=== PATIENT | male | born 1990 | race Hispanic/Latino ===

== ENCOUNTER 2019-06-01 18:49 | Emergency (ER) | payer BC ==
[2019-06-01] MEDS ORDERED: ONDANSETRON 4 MG ODT TAB PO ONE ×2 (19:56→19:57)
--- NOTE | 2019-06-01 19:59 | Event Note ---
ED Screening Note Date of service: 06/01/19 Time: 19:54 ED Screening Note: This is a 29 y.o. M. that presents to the ER with sore throat, nausea, and vomiting for 2 days. Reports increasing pain and hoarseness. This initial assessment/diagnostic orders/clinical plan/treatment(s) is/are subject to change based on patients health status, clinical progression and re- assessment by fellow clinical providers in the ED. Further treatment and workup at subsequent clinical providers discretion. Patient/guardian urged not to elope from the ED as their condition may be serious if not clinically assessed and managed. Initial orders include: Labs
[2019-06-01] MEDS ORDERED: ONDANSETRON 4 MG/2 ML INJ ONE (21:26)
[2019-06-01] MEDS ORDERED: ONDANSETRON 4 MG/2 ML INJ IV ONE (21:31)
[2019-06-01 21:41] LABS: Hematocrit 45.4 % (35.5-45.6); Mean Corpuscular HGB Conc 33 % (32-34); Mean Corpuscular Volume 87 fl (84-94); Platelet Count 417 K/mm3 (140-440); Red Blood Count 5.23 M/mm3 (3.65-5.03); Red Cell Distribution Width 14.5 % (13.2-15.2)
[2019-06-01] MEDS ORDERED: MORPHINE 4 MG/1 ML INJ IV ONE (21:42)
[2019-06-01] MEDS ORDERED: ZIPRASIDONE MESYLATE 20 MG VIAL IM ONE (21:42)
[2019-06-01] MEDS ORDERED: FAMOTIDINE 20 MG/2 ML INJ IV ONE (21:43)
[2019-06-01] MEDS ORDERED: diphenhydrAMINE 50 MG/ML VIAL IV ONE (21:43)
[2019-06-01] MEDS ORDERED: WATER FOR INJ Sterile (PF) 10 ML ONE (21:57)
[2019-06-01] MEDS ORDERED: D5W/0.9% NACL 1,000 ML IV SCH (22:00)
[2019-06-01 22:07] LABS: Alanine Aminotransferase 27 units/L (7-56); Albumin 5.3 g/dL (3.9-5); BUN/Creatinine Ratio 15; Blood Urea Nitrogen 15 mg/dL (9-20); Calcium 9.6 mg/dL (8.4-10.2); Hemolysis Index 10
[2019-06-01 22:38] LABS: Basophils % (Manual) 0 % (0.0-1.8); Eosinophils % (Manual) 0 % (0.0-4.3); RBC Morphology Normal; Total Cells Counted 200
[2019-06-01 22:39] LABS: Platelet Estimate Consistent w Auto
[2019-06-01] MEDS ORDERED: SODIUM CHLORIDE 0.9% 1000 ML 1,000 ML ONE (23:34)
[2019-06-01] MEDS ORDERED: SODIUM CHLORIDE 0.9% 1000 ML 1,000 ML IV ONE (23:36)
[2019-06-02 00:47] VITALS: BP 140/88
[2019-06-02] MEDS ORDERED: LIDOCAINE VISCOUS 2% 15 ML ORAL LIQD PO ONE (01:10)
[2019-06-02] MEDS ORDERED: ALUM-MAG HYDROXIDE-SIMETHICONE 200-200-20MG/5ML ORAL LIQD 30 ML PO ONE (01:10)
[2019-06-02] MEDS ORDERED: MORPHINE 4 MG/1 ML INJ IV ONE (01:20)
--- NOTE | 2019-06-02 01:25 | Emergency Department Report ---
ED N/V/D HPI - General Chief complaint: Nausea/Vomiting/Diarrhea Stated complaint: VOMIT/NAUSEA/THROAT PAIN Time Seen by Provider: 06/01/19 19:54 Source: patient Mode of arrival: Ambulatory Limitations: No Limitations - History of Present Illness Initial comments: Patient is a 29-year-old male who has a history of cyclical vomiting syndrome who is presenting with nausea vomiting and epigastric pain. Patient said multiple episodes such as this. Patient is from [place] has not been tough facility before. Patient has been vomiting all day. Patient was vomiting at the time the blood was drawn. States that P normally receives [place] dryl and Zofran and Thorazine that helps with his symptoms. Patient denies any fevers chills, cold or congestion. Patient states that he has a burning sensation in throat from the acid. - Related Data Previous Rx's Medication Instructions Recorded Last Taken Type Ondansetron [Zofran ODT TAB] 8 mg PO Q12HR #10 tab.rapdis 06/02/19 Unknown Rx Sucralfate [Carafate] 1 gm PO Q6HR 7 Days [facility] [place]19 Unknown Rx Allergies Allergy/AdvReac Type Severity Reaction Status Date / Time haloperidol [From Haldol] Allergy Unknown Verified 06/01/19 19:57 ED Review of Systems ROS: Stated complaint: VOMIT/NAUSEA/THROAT PAIN Other details as noted in HPI Comment: All other systems reviewed and negative ED Past Medical Hx - Past Medical History Previous Medical History?: Yes Additional medical history: Cyclic Vomiting Syndrome - Surgical History Past Surgical History?: No - Social History Smoking Status: Never Smoker Substance Use Type: None - Medications Home Medications: Home Medications Medication Instructions Recorded Confirmed Last Taken Type Ondansetron [Zofran ODT TAB] 8 mg PO Q12HR #10 tab.rapdis 06/02/19 Unknown Rx Sucralfate [Carafate] 1 gm PO Q6HR 7 Days [facility] [place] 06/02/19 Unknown Rx ED Physical Exam - General Limitations: No Limitations General appearance: alert, in no apparent distress - Head Head exam: Present: atraumatic, normocephalic - Eye Eye exam: Present: normal appearance - ENT ENT exam: Present: mucous membranes moist. Absent: normal orophraynx (mild erythema without swelling or exudate) - Neck Neck exam: Present: normal inspection - Respiratory Respiratory exam: Present: normal lung sounds bilaterally. Absent: respiratory distress, wheezes, rales, rhonchi - Cardiovascular Cardiovascular Exam: Present: normal rhythm, tachycardia. Absent: systolic murmur, diastolic murmur, rubs, gallop - GI/Abdominal GI/Abdominal exam: Present: soft, tenderness (epigasteric), normal bowel sounds. Absent: distended, guarding, rebound - Rectal Rectal exam: Present: deferred - Extremities Exam Extremities exam: Present: normal inspection - Back Exam Back exam: Present: normal inspection - Neurological Exam Neurological exam: Present: alert, oriented X3 - Psychiatric Psychiatric exam: Present: normal affect, normal mood - Skin Skin exam: Present: warm, dry, intact, normal color. Absent: rash ED Course Vital Signs 06/01/19 06/01/19 06/01/19 19:54 22:11 22:16 Temperature 98.6 F Pulse Rate 114 H 113 H 110 H Respiratory 20 22 24 Rate Blood Pressure 156/97 152/98 127/74 O2 Sat by Pulse 97 Oximetry 06/01/19 06/01/19 06/01/19 22:45 23:00 23:15 Temperature Pulse Rate 110 H 112 H 114 H Respiratory 19 18 18 Rate Blood Pressure 155/92 147/95 151/99 O2 Sat by Pulse Oximetry 06/01/19 06/01/19 06/02/19 23:30 23:46 00:00 Temperature Pulse Rate 120 H 137 H 111 H Respiratory 17 16 16 Rate Blood Pressure 163/100 169/97 140/88 O2 Sat by Pulse Oximetry ED Medical Decision Making - Lab Data Result diagrams: 06/01/19 21:30 06/01/19 21:30 - Medical Decision Making Patient received IV hydration and multiple multiple medications for symptom relief. Patient after receiving medications has not vomited again. Patient was monitored for department 2 hours after medications were given. Patient's only complaint at the time of discharge was still sore throat. Given Maalox and viscous lidocaine to see if this would help with his symptoms. Patient states he feels he can tolerate liquids but not solids at this time. Patient will be given upper prescription for Carafate which she says has helped in the past as well as ODT Zofran. Critical care attestation.: If time is entered above; I have spent that time in minutes in the direct care of this critically ill patient, excluding procedure time. ED Disposition Clinical Impression: Nausea & vomiting Qualifiers: Vomiting type: cyclical vomiting Vomiting Intractability: non-intractable Qualified Code(s): G43.A0 - Cyclical vomiting, not intractable Disposition: DC-01 TO HOME OR SELFCARE Is pt being admited?: No Does the pt Need Aspirin: No Condition: Stable Instructions: Acute Nausea and Vomiting (ED) Prescriptions: Sucralfate [Carafate] 1 gm PO Q6HR 7 Days [facility] Ondansetron [Zofran ODT TAB] 8 mg PO Q12HR #10 tab.rapdis Referrals: LAUREL FRANCO MD [Referring] - 3-5 Days Time of Disposition: 01:25
== END 2019-06-02 02:00 | disposition home or self-care (01) ==
LOC: ED 18:49
DX: G43.A0 Cyclical vomiting, in migraine, not intractable (principal)
CPT/HCPCS: 36415; 80053; 85007; 85025; 96361; 96372; 96374; 96375; 96376; 99283; J1200; J2270; J2405; J3486; J7030; J7042

== ENCOUNTER 2019-06-03 02:15 | Emergency (ER) | payer BC ==
[2019-06-03] MEDS ORDERED: SODIUM CHLORIDE 0.9% 1000 ML 1,000 ML IV ONE ×2 (05:13→07:18)
[2019-06-03] MEDS ORDERED: ALUM-MAG HYDROXIDE-SIMETHICONE 200-200-20MG/5ML ORAL LIQD 30 ML PO ONE (05:13)
[2019-06-03] MEDS ORDERED: DICYCLOMINE 20 MG/2 ML INJ IM ONE (05:13)
[2019-06-03] MEDS ORDERED: ONDANSETRON 4 MG/2 ML INJ IV ONE (05:13)
[2019-06-03] MEDS ORDERED: LIDOCAINE VISCOUS 2% 15 ML ORAL LIQD PO ONE (05:13)
[2019-06-03 05:40] LABS: Basophils % (Auto) 0.1 % (0.0-1.8); Eosinophils % (Auto) 0.1 % (0.0-4.3); Hematocrit 41.8 % (35.5-45.6); Hemoglobin 14.1 gm/dl (11.8-15.2); Lymphocytes # (Auto) 1.9 K/mm3 (1.2-5.4); Mean Corpuscular HGB Conc 34 % (32-34); Mean Corpuscular Volume 87 fl (84-94); Platelet Count 345 K/mm3 (140-440); Red Blood Count 4.81 M/mm3 (3.65-5.03); Red Cell Distribution Width 14.5 % (13.2-15.2)
[2019-06-03 05:51] LABS: Alanine Aminotransferase 23 units/L (7-56); Albumin 4.9 g/dL (3.9-5); BUN/Creatinine Ratio 21; Blood Urea Nitrogen 19 mg/dL (9-20); Calcium 9.4 mg/dL (8.4-10.2); Hemolysis Index 5
[2019-06-03] MEDS ORDERED: diphenhydrAMINE 50 MG/ML VIAL IV ONE (06:08)
[2019-06-03] MEDS ORDERED: SODIUM CHLORIDE 0.9% IV ONE (06:08)
[2019-06-03] MEDS ORDERED: CHLORPROMAZINE IV ONE (06:08)
--- NOTE | 2019-06-03 06:13 | Emergency Department Report ---
<ELIZABETH SIDDIQI - Last Filed: 06/03/19 07:24> ED General Adult HPI - General Chief complaint: Nausea/Vomiting/Diarrhea Stated complaint: NAUSEA AND VOMITING Time Seen by Provider: 06/03/19 05:07 Source: patient Mode of arrival: Ambulatory Limitations: No Limitations - History of Present Illness Initial comments: Patient is a 29-year-old male presents to emergency room with complaints of intermittent nausea and vomiting for a month. Patient states that he has associated sore throat from frequent vomiting and back discomfort. Patient states he has a past medical history of cyclical nausea and vomiting. pt states that he has had several ER visits. pt states that he sees a GI doctor. pt states that his GI doctor states that he should have Zofran, Thorazine, Benadryl for his cyclical vomiting syndrome. he denies any abdominal pain, fever, chills, hematemesis, hematochezia. he states he has past medical history of h ypertension. He states he has an allergy to Haldol. - Related Data Previous Rx's Medication Instructions Recorded Last Taken Type Ondansetron [Zofran ODT TAB] 8 mg PO Q12HR #10 tab.rapdis 06/02/19 Unknown Rx Sucralfate [Carafate] 1 gm PO Q6HR 7 Days [facility] 06/02/19 Unknown Rx Promethazine [Phenergan] 25 mg NC Q6HR PRN #15 supp.rect 06/03/19 Unknown Rx Allergies Allergy/AdvReac Type Severity Reaction Status Date / Time haloperidol [From Haldol] Allergy Unknown Verified 06/01/19 19:57 ED Review of Systems Comment: All other systems reviewed and negative ED Past Medical Hx - Past Medical History Previous Medical History?: Yes Additional medical history: Cyclic Vomiting Syndrome - Surgical History Past Surgical History?: No - Social History Smoking Status: Never Smoker Substance Use Type: None - Medications Home Medications: Home Medications Medication Instructions Recorded Confirmed Last Taken Type Ondansetron [Zofran ODT TAB] 8 mg PO Q12HR #10 tab.rapdis 06/02/19 Unknown Rx Sucralfate [Carafate] 1 gm PO Q6HR 7 Days [facility] 06/02/19 Unknown Rx Promethazine [Phenergan] 25 mg NC Q6HR PRN #15 supp.rect 06/03/19 Unknown Rx ED Physical Exam - General Limitations: No Limitations General appearance: alert, in no apparent distress - Head Head exam: Present: atraumatic, normocephalic - Eye Eye exam: Present: normal appearance - ENT ENT exam: Present: mucous membranes moist - Respiratory Respiratory exam: Present: normal lung sounds bilaterally. Absent: respiratory distress, wheezes, rales, rhonchi, stridor, chest wall tenderness, accessory muscle use, decreased breath sounds, prolonged expiratory - Cardiovascular Cardiovascular Exam: Present: regular rate, normal rhythm, normal heart sounds. Absent: systolic murmur, diastolic murmur, rubs, gallop - GI/Abdominal GI/Abdominal exam: Present: soft, normal bowel sounds. Absent: distended, tenderness, guarding, rebound, rigid - Neurological Exam Neurological exam: Present: alert, oriented X3 - Psychiatric Psychiatric exam: Present: normal affect, normal mood - Skin Skin exam: Present: warm, dry, intact ED Course - Consultations Consultation #1: 06/03/19 07:24 pt states he "needs to be admitted" spoke with Dr. Monreal regarding pt, Dr. Monreal is aware of pt, discussed that pt would like to be seen by MD, Dr. Monreal states that Dr. Bates will see pt ED Medical Decision Making - Lab Data Result diagrams: 06/03/19 05:22 06/03/19 05:22 ED Disposition Clinical Impression: Nausea & vomiting Qualifiers: Vomiting type: unspecified Vomiting Intractability: non-intractable Qualified Code(s): R11.2 - Nausea with vomiting, unspecified Disposition: DC-01 TO HOME OR SELFCARE Condition: Stable Prescriptions: Promethazine [Phenergan] 25 mg NC Q6HR PRN #15 supp.rect PRN Reason: Nausea Referrals: PRIMARY CARE, [Primary Care Provider] - 3-5 Days <MARYLOU BATES - Last Filed: 06/03/19 09:49> ED Review of Systems ROS: Stated complaint: NAUSEA AND VOMITING Other details as noted in HPI ED Course Vital Signs 06/03/19 06/03/19 02:16 07:29 Temperature 98.3 F Pulse Rate 110 H 117 H Respiratory 18 16 Rate Blood Pressure 111/42 [Right] O2 Sat by Pulse 98 96 Oximetry ED Medical Decision Making - Lab Data Result diagrams: 06/03/19 05:22 06/03/19 05:22 - Medical Decision Making Patient is a 29-year-old male with a history of cyclical vomiting syndrome. Patient is not vomiting multiple hours here in the emergency department. His left or studies are actually slightly better than 2 days ago when he was here. Patient is requesting admission. Dyspneic with the hospitalist personnel monitor who suggested that a CT be performed to rule out cervical emergencies and then a consult could possibly be done. Patient is refusing CT. Again patient has no abdominal only complaint this time is nausea. Do feel reasonable that he be discharged. Patient's discharge with Phenergan suppositories. Critical care attestation.: If time is entered above; I have spent that time in minutes in the direct care of this critically ill patient, excluding procedure time. ED Disposition Is pt being admited?: No Does the pt Need Aspirin: No Time of Disposition: 09:49
[2019-06-03 07:30] VITALS: BP 111/42
== END 2019-06-03 10:04 | disposition home or self-care (01) ==
LOC: ED 02:15
DX: G43.A0 Cyclical vomiting, in migraine, not intractable (principal); I10 Essential (primary) hypertension; Z79.899 Other long term (current) drug therapy; Z88.5 Allergy status to narcotic agent
CPT/HCPCS: 36415; 80053; 83690; 85025; 96361; 96365; 96375; 99283; J0500; J1200; J2405; J3230; J7030